=== PATIENT | female | born 1985 | race Caucasian/White ===

== ENCOUNTER 2021-07-15 06:30 | Emergency (ER) | payer BC ==
[2021-07-15 07:43] LABS: Appearance SLIGHTLY CLOUDY (CLEAR); Bacteria RARE /HPF (NEGATIVE); Bilirubin NEGATIVE (NEGATIVE); Blood NEGATIVE Ery/ul (0-5); Epithelial Cells FEW /HPF (FEW); Glucose NEGATIVE (NEGATIVE); Ketones NEGATIVE (NEGATIVE); Leukocyte Esterase MODERATE (NEGATIVE); Mucus SLIGHT /HPF (NEGATIVE); Nitrite NEGATIVE (NEGATIVE); Protein,Urine Dip NEGATIVE (Negative); RBC 0-2 /HPF (0-2); Specific Gravity 1.024 (1.005-1.025); Urobilinogen NEGATIVE mg/dL (0-1)
--- NOTE | 2021-07-15 07:46 | ERPHSYRPT ---
- History of Present Illness Time Seen by Provider: 07/15/21 07:30 Historian: patient Exam Limitations: no limitations Patient Subjective Stated Complaint: rt sided abd pain, vomited, scheduled to have gallbladder out 07/22 Triage Nursing Assessment: pt c/o rt sided abd pain since last night, vomit x1 this morning. Pt is scheduled to have gallbladder out on 07/22/[address] Skye Adhikari. Pt stated, "I do have gallstones". Physician History: Patient is a 36-year-old female with a history of cholelithiasis scheduled for elective cholecystectomy on 07/22/2021 presents to our ED with right upper quadrant pain. Pain started last night and has been constant. Patient took Tylenol at approximately 5 AM. Patient currently declines medication. Pain is associated with emesis x1. Patient denies diarrhea. No trauma. No fever. Symptoms are moderate in intensity. Palpation reproduces symptoms. Pain improved with rest. Patient is otherwise healthy. Patient states that Dr. Liya Peters will be performing the elective cholecystectomy. Patient voices no other complaints concerns at this time. Timing/Duration: today Activities at Onset: none Quality: aching Abdominal Pain Onset Location: RUQ Pain Radiation: no radiation Severity of Pain-Max: moderate Severity of Pain-Current: mild (Patient declined pain medication.) Modifying Factors: Improves With: nothing Associated Symptoms: vomiting Previous symptoms: same symptoms as today Allergies/Adverse Reactions: sulfamethoxazole [From Bactrim] Allergy (Intermediate, Verified 07/15/21 06:52) Hives trimethoprim [From Bactrim] Allergy (Intermediate, Verified 07/15/21 06:52) Hives butorphanol tartrate [From Stadol] Allergy (Verified 07/15/21 06:52) Penicillins Allergy (Verified 07/15/21 06:52) Home Medications: No Reportable Medications [No Reported Medications] 07/15/21 [History] Hx Tetanus, Diphtheria Vaccination/Date Given: Yes Hx Influenza Vaccination/Date Given: No Hx Pneumococcal Vaccination/Date Given: No Immunizations Up to Date: Yes Travel Risk - International Travel Have you traveled outside of the country in past 3 weeks: No - Coronavirus Screening Are you exhibiting any of the following symptoms?: No Close contact with a COVID-19 positive Pt in past 14-21 Days: No - Vaccine Status Have you recieved a Covid-19 vaccination: No - Review of Systems Constitutional: No Symptoms, No Fever, No Chills Eyes: No Symptoms Ears, Nose, & Throat: No Symptoms Respiratory: No Symptoms, No Cough, No Dyspnea Cardiac: No Symptoms, No Chest Pain, No Edema, No Syncope Abdominal/Gastrointestinal: No Symptoms, No Abdominal Pain, No Nausea, No Vomiting, No Diarrhea Genitourinary Symptoms: No Symptoms, No Dysuria Musculoskeletal: No Symptoms, No Back Pain, No Neck Pain Skin: No Symptoms, No Rash Neurological: No Symptoms, No Dizziness, No Focal Weakness, No Sensory Changes Psychological: No Symptoms Endocrine: No Symptoms Hematologic/Lymphatic: No Symptoms Immunological/Allergic: No Symptoms All Other Systems: Reviewed and Negative - Past Medical History Pertinent Past Medical History: Yes Neurological History: No Pertinent History ENT History: No Pertinent History Cardiac History: No Pertinent History Respiratory History: No Pertinent History Endocrine Medical History: No Pertinent History Musculoskeletal History: No Pertinent History GI Medical History: No Pertinent History History: No Pertinent History Psycho-Social History: No Pertinent History Female Reproductive Disorders: No Pertinent History - Past Surgical History Past Surgical History: Yes Female Surgical History: Tubal Ligation - Social History Smoking Status: Never smoker Exposure to second hand smoke: No Drug Use: none Patient Lives Alone: No - Female History Hx Now: No - Nursing Vital Signs Nursing Vital Signs: Initial Vital Signs Temperature 98.2 F 07/15/21 06:43 Pulse Rate 60 07/15/21 06:43 Respiratory Rate 16 07/15/21 06:43 Blood Pressure 143/94 07/15/21 06:43 O2 Sat by Pulse Oximetry 100 07/15/21 06:43 Pain Scale Pain Intensity 4 - Physical Exam General Appearance: no apparent distress, alert Eye Exam: PERRL/EOMI, eyes nml inspection, No scleral icterus, No pale co njunctivae Ears, Nose, Throat Exam: normal ENT inspection, TMs normal, pharynx normal, moist mucous membranes Neck Exam: normal inspection, non-tender, supple, full range of motion Respiratory Exam: normal breath sounds, lungs clear, airway intact, No respiratory distress Cardiovascular Exam: regular rate/rhythm, normal heart sounds, normal peripheral pulses Gastrointestinal/Abdomen Exam: soft, normal bowel sounds, No tenderness, No mass, No guarding Back Exam: normal inspection, normal range of motion, No CVA tenderness, No vertebral tenderness Extremity Exam: normal inspection, normal range of motion, pelvis stable Neurologic Exam: alert, oriented x 3, cooperative, normal mood/affect, nml cerebellar function, sensation nml, No motor deficits Skin Exam: normal color, warm, dry SpO2 Interpretation: normal SpO2: 100 O2 Delivery: Room Air - Course Nursing assessment & vital signs reviewed: Yes - Radiology Ultrasound Exam Gallbladder Ultrasound: tele radiology report (Cholelithiasis without evidence of abnormal gallbladder enlargement, gallbladder wall thickening/edema or biliary duct distention. The remainder of the gallbladder ultrasound appears unremarkable.) Ordered Tests: Active Orders 24 hr Category Date Time Status GALLBLADDER [US] Stat Exams 07/15/21 07:39 Completed UA W/RFX UR CULTURE Stat Lab 07/15/21 07:31 Completed Lab/Rad Data: Laboratory Results 07/15/21 Range/Units 07:31 Urine Color YELLOW (YELLOW) Urine Appearance SLIGHTLY CLOUDY (CLEAR) Urine pH 6.0 (5-6) Ur Specific [place] 1.024 (1.005-1.025) Urine Protein NEGATIVE (Negative) Urine Ketones NEGATIVE (NEGATIVE) Urine Blood NEGATIVE (0-5) Luca/ul Urine Nitrite NEGATIVE (NEGATIVE) Urine Bilirubin NEGATIVE (NEGATIVE) Urine Urobilinogen NEGATIVE (0-1) mg/dL Ur Leukocyte Esterase MODERATE (NEGATIVE) Urine WBC (Auto) 11-15 (0-5) /HPF Urine RBC (Auto) 0-2 (0-2) /HPF U Epithel Cells (Auto) FEW (FEW) /HPF Urine Bacteria (Auto) RARE (NEGATIVE) /HPF Urine Mucus (Auto) SLIGHT (NEGATIVE) /HPF Urine Culture Reflexed NO (NO) Urine Glucose NEGATIVE (NEGATIVE) mg/dL - Progress Progress: improved Progress Note: We contacted Dr. Adhikari's office. Dr. Liya Adhikari is not immediately available. She is in surgery. Dr. Ash Adhikari will be arriving to the office at 9 AM. Patient had her outpatient/preoperative laboratory work-up completed 4 days ago. Serum hCG negative. CBC is nonremarkable. No leukocytosis. Hemoglobin 13.9. Chemistry is also nonremarkable. Calcium is 10.3. Liver enzymes are normal. Total bili is also within normal limits at 1.2. 07/15/21 09:00 Patient continues to decline pain medication. Dr. Adhikari's office states that patient may go home as long as the labs are normal. The labs are normal at this time. Ultrasound right upper quadrant is negative for cholecystitis. Gallstones are seen. Patient states she is ready for discharge. She voices no other complaints concerns at this time. Portions of this note were created with voice recognition technology. There may be grammatical, spelling, punctuation or sound alike errors 07/15/21 09:17 Discussed with : Vik Counseled pt/family regarding: diagnosis, need for follow-up, rad results - Departure Departure Disposition: Home Clinical Impression: Biliary colic, Cholelithiasis Condition: Stable Critical Care Time: No Referrals: JOSE ANGEL TOBAR PA [Primary Care Provider] - Follow up/PCP as directed Additional Instructions: Discharge/Care Plan CHRISTAKATERINA MADRID was seen on 07/15/21 in the Emergency Room. The patient was counseled regarding Diagnosis,Lab results, Imaging studies, need for follow up and when to return to the Emergency Room. Prescriptions given: Discharge Note I have spoken with the patient and/or caregivers. I have explained the patient's condition, diagnosis and treatment plan based on the information available to me at this time. I have answered the patient's and/or caregiver's questions and addressed any concerns. The patient and/or caregivers have as good understanding of the patient's diagnosis, condition and treatment plan as can be expected at this point. The vital signs have been stable. The patient's condition is stable and appropriate for discharge from the emergency department. The patient will pursue further outpatient evaluation with the primary care physician or other designated or consulting physician as outlined in the discharge instructions. The patient and/or caregivers are agreeable to this plan of care and follow-up instructions have been explained in detail. The patient and/or caregivers have received these instruction. The patient/and or caregivers are aware that any significant change in condition or worsening of symptoms should prompt an immediate return to this or the closest emergency department or call 911.
--- NOTE | 2021-07-15 08:36 | XRAY ---
Exam: Gallbladder ultrasound from 07/15/2021. Comparison: None. Indication: 36-year-old female with cholecystitis. Findings: Several transverse images of the pancreas appear unremarkable. No focal pancreatic mass, pancreatic calcifications, or pancreatic duct distention is seen. The liver appears of unremarkable size with the right hepatic lobe measuring 16.2 cm in greatest craniocaudal dimension. No focal hepatic mass is seen. Normal color blood flow within the main portal vein towards the liver is seen. No intrahepatic biliary duct distention is seen. The gallbladder is distended and is remarkable for at least several moderate sized, intraluminal posterior shadowing gallstones. The gallbladder wall measures 2.4 mm in thickness which is normal. No pericholecystic edema or fluid is seen. The proximal common bile duct measures 4.5 mm which is within normal limits. No free fluid is seen within the right upper quadrant. The right kidney measures 9.9 cm in length and reveals no mass or hydronephrosis. Color flow imaging within the right kidney appears unremarkable. Impression: 1. Cholelithiasis without evidence of abnormal gallbladder enlargement, gallbladder wall thickening/edema, or biliary duct distention. 2. The remainder of the gallbladder ultrasound appears unremarkable.
[2021-07-15 09:26] VITALS: PULSE 70
[2021-07-15 09:27] VITALS: BP 128/80; O2SAT 99
== END 2021-07-15 09:26 | disposition home or self-care (01) ==
LOC: ED 06:30
DX: K80.50 Calculus of bile duct without cholangitis or cholecystitis without obstruction (principal); K80.20 Calculus of gallbladder without cholecystitis without obstruction; R11.11 Vomiting without nausea
CPT/HCPCS: 76705; 81001; 99283

== ENCOUNTER 2021-07-22 09:52 | Day surgery (SDC) | payer BC ==
[~2021-07-22 09:52] MED LIST: Sensorcaine 0.25% 10 ML ONE
[2021-07-22] MEDS ORDERED: Levofloxacin 500MG/100ML D5W 500 MG/100 ML BAG IV SCH (10:15)
[2021-07-22] MEDS ORDERED: Lactated Ringers 1,000 ML IV SCH (10:30)
[2021-07-22] MEDS ORDERED: CLINDAMYCIN-D5W 900 MG/50 ML*** 900 MG/50 ML BAG IV SCH (10:30)
[2021-07-22] MEDS ORDERED: Versed 2 MG/2 ML Injection IV PRN (10:34)
[2021-07-22] MEDS ORDERED: CLINDAMYCIN-D5W 900 MG/50 ML*** 900 MG/50 ML BAG IV ONE (10:36)
[2021-07-22] MEDS ORDERED: Versed 2 MG/2 ML Injection ONE ×2 (10:36→11:05)
[2021-07-22] MEDS ORDERED: Lactated Ringers 1,000 ML IV ONE (10:36)
[2021-07-22] MEDS ORDERED: Levofloxacin 500MG/100ML D5W 500 MG/100 ML BAG IV ONE (10:36)
[2021-07-22] MEDS ORDERED: DIPRIVAN 200 MG/20 ML IV ONE (11:05)
[2021-07-22] MEDS ORDERED: Zemuron 100 MG/10 ML ONE (11:05)
[2021-07-22] MEDS ORDERED: SUBLIMAZE 250 MCG/5 ML ONE (11:05)
[2021-07-22] MEDS ORDERED: VERSED 5 MG/5 ML ONE (13:29)
[2021-07-22] MEDS ORDERED: Ephedrine Sulfate 50 MG/ML ONE (14:03)
[2021-07-22] MEDS ORDERED: BRIDION 200MG/2ML IV ONE (14:45)
[2021-07-22] MEDS ORDERED: TORAdol 30 mg Injection ONE (15:35)
[2021-07-22 17:00] VITALS: BP 137/80; PULSE 71; O2SAT 98
--- NOTE | 2021-07-23 08:05 | HP ---
HISTORY OF PRESENT ILLNESS: This is a patient who presents with right upper quadrant abdominal pain here for laparoscopic possible open cholecystectomy. Risks, benefits, alternatives have all been discussed with her in detail and she would like to proceed. She does have pain consistent with chronic cholecystitis and she does have an ultrasound confirming gallbladder disease with a 1 cm gallstone identified. Her bile duct is normal in size at 6 mm. PAST MEDICAL/SURGICAL HISTORY: Includes anxiety, depression and tubal ligation. MEDICATIONS: None. ALLERGIES: PENICILLIN. BACTRIM. SOCIAL HISTORY: No tobacco. No alcohol use. FAMILY HISTORY: Negative. PHYSICAL EXAMINATION: GENERAL: No acute distress. CVS: Regular rate and rhythm. PULMONARY: Nonlabored. ABDOMEN: Soft, minimally tender to palpation. No rebound. No guarding. EXTREMITIES: Normal. DIAGNOSIS: Chronic cholecystitis with cholelithiasis. PLAN: Procedure laparoscopic cholecystectomy possible open.
--- NOTE | 2021-07-23 09:28 | OP ---
PROCEDURE DATE/TIME: 07/22/2021 1341 PREOPERATIVE DIAGNOSIS: Chronic cholecystitis with cholelithiasis. POSTOPERATIVE DIAGNOSIS: Chronic cholecystitis with cholelithiasis. PROCEDURE: Laparoscopic cholecystectomy. PROCEDURE PERFORMED BY: Liya Adhikari M.D. COMPLICATIONS: None. ESTIMATED BLOOD LOSS: Minimal. ANESTHESIA: General. SPECIMEN: Gallbladder. HISTORY: This is a 36-year-old female who has chronic cholecystitis with cholelithiasis. Her symptoms are consistent with this disease as well as an ultrasound which all have been reviewed with her and the procedure details have been reviewed with her as well and confirmed. H&P and consent reviewed with her and confirmed. Labs reviewed. DESCRIPTION OF PROCEDURE: The patient is brought to the operative suite. Anesthesia induced, prepped and draped in the usual sterile fashion. A complete time out performed. Orogastric tube inserted and the stomach desufflated. Left upper quadrant incision made. Veress needle used to access the abdominal cavity. Good initial water drop test. The abdomen insufflated easily. A 5 mm optical port at the same site under direct visualization. No injuries identified. The gallbladder then identified. It was elongated, grasped and retracted cephalad and lateral. The adhesions were taken down, carefully dissected to a critical view. Cystic duct and cystic artery were clearly visualized. The patient did also have a very tiny posterior cystic artery branch which was also isolated. We then continued our dissection and cleared the liver plate farther up and insured our anatomy. We then clipped and cut the cystic duct and cystic artery, carefully removed the gallbladder off of the liver bed. The patient did have quite a bit of vascularity and inflammation here, this all was consistent with her having a recent attack last week. I did use Surgicel here for hemostasis with good results. The gallbladder is then placed in a laparoscopic bag. The skin was protected with the bag. We crushed the stone and then removed the gallbladder from the abdomen insuring to keep the bag in place to protect the skin. There was no spillage with any bile, any stone or any contents at all. Everything was sent to pathology. We then replaced our scope to insure good hemostasis at the liver bed. Removed all the Surgicel and hemostasis looked excellent. All of the clips are in good position. There is no leakage of bile, no blood. I then turned my attention to the pelvis and did take some pictures of her ovaries and tubes, as she is undergoing a gynecology work up due to symptoms here and I have sent these pictures with her family so that she may take these to her hood fitter in case it can help with her work up there. I did not see anything obviously abnormal here other than some cysts and I will leave this up to her hood fitter to pursue further. Outside of this I then closed the 11 port at the umbilicus with a 0 Vicryl laparoscopic suture, this looked good. I removed my 5 port from the left upper quadrant. I then desufflated and removed my 5 port from the right upper quadrant. No bleeding. Everything irrigated, closed with buried 4-0 Monocryl and sterile dressing. The patient tolerated the procedure very well. No immediate complications. I discussed all of her instructions with her family postoperatively as well as all of her findings. She will be following up with myself, her primary care physician and SURFACE SUPERVISOR.
== END 2021-07-22 17:30 | disposition home or self-care (01) ==
LOC: SDC 09:52
PROVIDERS: ATTEND Surgery
DX: K80.10 Calculus of gallbladder with chronic cholecystitis without obstruction (principal)
CPT/HCPCS: 84703; J1885; J1956; J2250; J2704; J3010